=== PATIENT | female | born 1955 | race Caucasian/White ===

== ENCOUNTER → 2020-09-03 | Outpatient (CLI) | payer OTHER ==
--- NOTE | 2020-09-03 11:13 | REP ---
INDICATION: N95.0 PMB. COMPARISON: Comparison pelvic sonography October 04, 2013.. TECHNIQUE: Transabdominal and transvaginal scanning were performed. FINDINGS: Uterine dimensions are normal at 8.3 x 4.2 x 4.6 cm. Endometrial echo is 1.4 cm thick and centrally placed. No free fluid is seen in the cul-de-sac. Visualized bladder arana are smooth. Endometrium is abnormally thick. Multiple nabothian cysts are seen. The right ovary has dimensions of 1.2 x 0.7 x 1.4 cm. The left ovary dimensions are normal as well at 1.4 x 1.3 x 0.8 cm. IMPRESSION: 14 mm thickened endometrium. Rule out hyperplasia versus neoplasia. Otherwise negative.. <Electronically signed by Mike Granger > 09/03/20 [id number]
== END ==
LOC: M WHC 10:22
PROVIDERS: ATTEND Obstetrics & Gynecology
DX: N95.0 Postmenopausal bleeding (principal)

== ENCOUNTER → 2020-10-09 | Outpatient (CLI) | payer OTHER ==
--- NOTE | 2020-10-09 11:11 | REPPI ---
INDICATION: BILATERAL KNEE PAIN COMPARISON: None. TECHNIQUE: Five views bilateral knees. FINDINGS: There is no evidence of acute fracture, dislocation, or intrinsic bone disease.On the left there is moderate medial joint space narrowing with subchondral sclerosis. There is moderate spurring of the lateral femoral condyle and medial tibial plateau. There is mild spurring of the tibial spines. There is mild spurring of the superior and inferior poles of the patella. There is mild narrowing of the lateral patellofemoral joint with subchondral sclerosis. There is a mild to moderate suprapatellar effusion. On the right there is moderate medial joint space narrowing with subchondral sclerosis. There is moderate spurring of the medial femoral condyle and tibial plateau. There is mild spurring of the tibial spines. There is mild superior patellar spurring. There is mild narrowing of the lateral patellofemoral joint with subchondral sclerosis. There is a small suprapatellar effusion. IMPRESSION: No fracture or dislocation. Bilateral degenerative changes as discussed above, most significantly in the medial joint compartments. Bilateral suprapatellar effusions, left greater than right. <Electronically signed by Freddie Shore > 10/09/20 0137
== END ==
LOC: M PLAIMG 09:26
DX: M25.562 Pain in left knee (principal); M25.561 Pain in right knee; M17.0 Bilateral primary osteoarthritis of knee; M25.461 Effusion, right knee; M25.462 Effusion, left knee

== ENCOUNTER → 2022-05-03 | Outpatient (CLI) | payer MEDICARE, OTHER, SELFPAY ==
[~2022-05-03] MED LIST: HYDR12.55 PO; METO1TAB32 PO
== END ==
LOC: M WHC 14:12
PROVIDERS: ATTEND Nurse Practitioner Family
DX: Z12.31 Encounter for screening mammogram for malignant neoplasm of breast (principal); Z78.0 Asymptomatic menopausal state; N63.20 Unspecified lump in the left breast, unspecified quadrant; N63.10 Unspecified lump in the right breast, unspecified quadrant; M85.89 Other specified disorders of bone density and structure, multiple sites

== ENCOUNTER → 2022-06-29 | Outpatient (CLI) | payer MEDICARE, OTHER ==
[~2022-06-29] MED LIST changes: +ATOR1TAB21 PO; +VITMTA PO
== END ==
LOC: M LABSMTC 09:05
PROVIDERS: ATTEND Anesthesiology
DX: Z01.812 Encounter for preprocedural laboratory examination (principal); Z20.822 Contact with and (suspected) exposure to COVID-19

== ENCOUNTER 2022-07-04 07:56 | Day surgery (SDC) | payer MEDICARE, OTHER ==
[~2022-07-04] VITALS: Ht 167.6 cm; Wt 103.0 kg
[~2022-07-04 07:56] MED LIST changes: +LIDOCAINE 2% 100MG/5ML SDV (FOR ANES.) As Ordered ONE; +NS 1,000 ML IV ONE; +propofoL 200 MG/20 ML VIAL As Ordered ONE
[2022-07-04 10:07] VITALS: BP 121/72
== END 2022-07-04 10:08 | disposition home or self-care (01) ==
LOC: M OPP 07:56
PROVIDERS: ATTEND Internal Medicine Gastroenterology
DX: Z80.0 Family history of malignant neoplasm of digestive organs (principal); D12.6 Benign neoplasm of colon, unspecified; K64.0 First degree hemorrhoids; K57.30 Diverticulosis of large intestine without perforation or abscess without bleeding; Z79.899 Other long term (current) drug therapy; Z88.2 Allergy status to sulfonamides; I25.2 Old myocardial infarction; I77.819 Aortic ectasia, unspecified site; I34.0 Nonrheumatic mitral (valve) insufficiency; M13.89 Other specified arthritis, multiple sites; L40.9 Psoriasis, unspecified; Z80.41 Family history of malignant neoplasm of ovary; Z87.891 Personal history of nicotine dependence

== ENCOUNTER → 2023-08-07 | Outpatient (CLI) | payer MEDICARE, OTHER ==
[~2023-08-07] MED LIST changes: -LIDOCAINE 2% 100MG/5ML SDV (FOR ANES.) As Ordered ONE; -NS 1,000 ML IV ONE; -propofoL 200 MG/20 ML VIAL As Ordered ONE
== END ==
LOC: M ADAMS 10:22
PROVIDERS: ATTEND Nurse Practitioner Family
DX: S46.912A Strain of unspecified muscle, fascia and tendon at shoulder and upper arm level, left arm, initial encounter (principal); X58.XXXA Exposure to other specified factors, initial encounter; Y92.9 Unspecified place or not applicable; Y93.9 Activity, unspecified; Y99.9 Unspecified external cause status

== ENCOUNTER → 2023-08-17 | Outpatient (CLI) | payer MEDICARE, OTHER | LOC: M WHC 11:31 | PROVIDERS: ATTEND Nurse Practitioner Family | DX: Z12.31 Encounter for screening mammogram for malignant neoplasm of breast (principal); R92.343 Mammographic extreme density, bilateral breasts; Z80.41 Family history of malignant neoplasm of ovary ==

== ENCOUNTER → 2023-10-04 | Outpatient (REF) | payer MEDICARE, OTHER ==
[2023-10-04 13:34] LABS: CPK CREATINE PHOSPHOKINASE 107 U/L (34-145)
[2023-10-04 13:37] LABS: BASO % 0.7 % (0.0-1.0); EOS # 0.1 10^3/uL (0.0-0.5); EOS % 2.2 % (0.0-3.0); HEMATOCRIT 43.8 % (36.0-47.0); HEMOGLOBIN 14.4 g/dl (12.0-15.5); LYMPH # 2.1 10^3/uL (1.5-5.0); LYMPH % 34.9 % (24.0-44.0); MEAN CORPUSCULAR HEMOGLOBIN 29.8 pg (27.0-33.0); MEAN CORPUSCULAR HGB CONC 32.9 g/dl (32.0-36.5); MEAN CORPUSCULAR VOLUME 90.5 fl (80.0-96.0); MONO # 0.5 10^3/uL (0.0-0.8); MONO % 8.5 % (2.0-8.0); NEUTROPHILS # 3.2 10^3/uL (1.5-8.5); NEUTROPHILS % 53.5 % (36.0-66.0); PLATELET COUNT, AUTOMATED 220 10^3/uL (150-450); RED BLOOD COUNT 4.84 10^6/uL (4.00-5.40); WHITE BLOOD COUNT 5.9 10^3/uL (4.0-10.0)
[2023-10-04 13:49] LABS: ALBUMIN 3.8 G/DL (3.2-5.2); ALKALINE PHOSPHATASE 92 U/L (46-116); ALT/SGPT 26 U/L (7.0-40); AST/SGOT 20 U/L (<34); BILIRUBIN,TOTAL 0.6 MG/DL (0.3-1.2); BLOOD UREA NITROGEN 16 MG/DL (9-23); CALCIUM LEVEL 9.5 MG/DL (8.3-10.6); CARBON DIOXIDE LEVEL 30 MMOL/L (20-31); CHLORIDE LEVEL 105 MMOL/L (98-107); CHOLESTEROL LEVEL 165 MG/DL (<200); CHOLESTEROL RISK RATIO 2.79 (<5); CREATININE FOR GFR 0.86 MG/DL (0.55-1.30); GLOMERULAR FILTRATION RATE > 60.0 (>45); GLUCOSE, FASTING 92 MG/DL (74-106); HDL CHOLESTEROL 59.1 MG/DL (>40); LDL CHOLESTEROL 91.5 MG/DL (<100); NON-HDL-C 105.9 MG/DL; POTASSIUM SERUM 4.3 MMOL/L (3.5-5.1); SODIUM LEVEL 141 MMOL/L (136-145); TOTAL PROTEIN 6.4 G/DL (5.7-8.2); TRIGLYCERIDES LEVEL 72 MG/DL (<150)
[2023-10-05 08:11] LABS: LDL DIRECT 93 mg/dL (0-99)
== END ==
LOC: M LABDRWAD 12:57
PROVIDERS: ATTEND Physician Assistant Medical
DX: I35.1 Nonrheumatic aortic (valve) insufficiency (principal); Z82.49 Family history of ischemic heart disease and other diseases of the circulatory system; I89.0 Lymphedema, not elsewhere classified; E78.2 Mixed hyperlipidemia; R06.02 Shortness of breath

== ENCOUNTER → 2023-11-28 | Outpatient (CLI) | payer MEDICARE, OTHER | LOC: M WHC 08:18 | PROVIDERS: ATTEND Nurse Practitioner Family | DX: N64.59 Other signs and symptoms in breast (principal); Z53.9 Procedure and treatment not carried out, unspecified reason ==

== ENCOUNTER → 2024-06-10 | Outpatient (REF) | payer MEDICARE, OTHER ==
[2024-06-10 13:09] LABS: BASO % 0.6 % (0.0-1.0); EOS # 0.2 10^3/uL (0.0-0.5); EOS % 2.6 % (0.0-3.0); HEMATOCRIT 43.3 % (36.0-47.0); HEMOGLOBIN 13.7 g/dl (12.0-15.5); LYMPH # 2.1 10^3/uL (1.5-5.0); LYMPH % 29.5 % (24.0-44.0); MEAN CORPUSCULAR HEMOGLOBIN 28.4 pg (27.0-33.0); MEAN CORPUSCULAR HGB CONC 31.6 g/dl (32.0-36.5); MEAN CORPUSCULAR VOLUME 89.6 fl (80.0-96.0); MONO # 0.5 10^3/uL (0.0-0.8); MONO % 7.5 % (2.0-8.0); NEUTROPHILS # 4.3 10^3/uL (1.5-8.5); NEUTROPHILS % 59.5 % (36.0-66.0); PLATELET COUNT, AUTOMATED 275 10^3/uL (150-450); RED BLOOD COUNT 4.83 10^6/uL (4.00-5.40); WHITE BLOOD COUNT 7.2 10^3/uL (4.0-10.0)
[2024-06-10 13:13] LABS: ALBUMIN 3.7 G/DL (3.2-5.2); ALKALINE PHOSPHATASE 76 U/L (35-104); ALT/SGPT 32 U/L (7.0-40); AST/SGOT 26 U/L (<34); BILIRUBIN,TOTAL 0.7 MG/DL (0.3-1.2); BLOOD UREA NITROGEN 18 MG/DL (9-23); CALCIUM LEVEL 9.4 MG/DL (8.3-10.6); CARBON DIOXIDE LEVEL 29 MMOL/L (20-31); CHLORIDE LEVEL 107 MMOL/L (98-107); CHOLESTEROL LEVEL 163 MG/DL (<200); CHOLESTEROL RISK RATIO 3.56 (<5); CREATININE FOR GFR 0.78 MG/DL (0.55-1.30); GLOMERULAR FILTRATION RATE > 60.0 (>45); GLUCOSE, FASTING 94 MG/DL (74-106); HDL CHOLESTEROL 45.7 MG/DL (>40); LDL CHOLESTEROL 96.1 MG/DL (<100); NON-HDL-C 117.3 MG/DL; POTASSIUM SERUM 4.4 MMOL/L (3.5-5.1); SODIUM LEVEL 143 MMOL/L (136-145); THYROID STIMULATING HORMONE 1.745 uIU/ML (0.55-4.78); TOTAL 25(OH) VITAMIN D 34.5 NG/ML (20.0-100.0); TOTAL PROTEIN 6.3 G/DL (5.7-8.2); TRIGLYCERIDES LEVEL 106 MG/DL (<150)
[2024-06-10 13:30] LABS: HEMOGLOBIN A1c 5.3 % (4.0-6.0)
== END ==
LOC: M LABDRWAD 12:26
PROVIDERS: ATTEND Nurse Practitioner Family
DX: E55.9 Vitamin D deficiency, unspecified (principal); E66.9 Obesity, unspecified; I35.1 Nonrheumatic aortic (valve) insufficiency; R73.9 Hyperglycemia, unspecified; R60.0 Localized edema; E78.2 Mixed hyperlipidemia; R06.02 Shortness of breath; R94.31 Abnormal electrocardiogram [ECG] [EKG]; I71.21 Aneurysm of the ascending aorta, without rupture; Z82.49 Family history of ischemic heart disease and other diseases of the circulatory system

== ENCOUNTER → 2024-06-10 | Outpatient (REF) | payer MEDICARE, OTHER ==
[2024-06-10 13:08] LABS: BASO % 0.5 % (0.0-1.0); EOS # 0.2 10^3/uL (0.0-0.5); EOS % 2.4 % (0.0-3.0); HEMATOCRIT 42.9 % (36.0-47.0); HEMOGLOBIN 13.8 g/dl (12.0-15.5); LYMPH # 2.2 10^3/uL (1.5-5.0); LYMPH % 29.4 % (24.0-44.0); MEAN CORPUSCULAR HEMOGLOBIN 28.8 pg (27.0-33.0); MEAN CORPUSCULAR HGB CONC 32.2 g/dl (32.0-36.5); MEAN CORPUSCULAR VOLUME 89.6 fl (80.0-96.0); MONO # 0.6 10^3/uL (0.0-0.8); MONO % 8.1 % (2.0-8.0); NEUTROPHILS # 4.4 10^3/uL (1.5-8.5); NEUTROPHILS % 59.3 % (36.0-66.0); PLATELET COUNT, AUTOMATED 271 10^3/uL (150-450); RED BLOOD COUNT 4.79 10^6/uL (4.00-5.40); WHITE BLOOD COUNT 7.5 10^3/uL (4.0-10.0)
[2024-06-10 13:11] LABS: ALBUMIN 3.7 G/DL (3.2-5.2); ALKALINE PHOSPHATASE 75 U/L (35-104); ALT/SGPT 33 U/L (7.0-40); AST/SGOT 26 U/L (<34); BILIRUBIN,TOTAL 0.7 MG/DL (0.3-1.2); BLOOD UREA NITROGEN 19 MG/DL (9-23); CALCIUM LEVEL 9.3 MG/DL (8.3-10.6); CARBON DIOXIDE LEVEL 28 MMOL/L (20-31); CHLORIDE LEVEL 107 MMOL/L (98-107); CHOLESTEROL LEVEL 163 MG/DL (<200); CREATININE FOR GFR 0.78 MG/DL (0.55-1.30); GLOMERULAR FILTRATION RATE > 60.0 (>45); GLUCOSE, FASTING 95 MG/DL (74-106); HDL CHOLESTEROL 46.5 MG/DL (>40); LDL CHOLESTEROL 95.1 MG/DL (<100); NON-HDL-C 116.5 MG/DL; POTASSIUM SERUM 4.4 MMOL/L (3.5-5.1); SODIUM LEVEL 144 MMOL/L (136-145); TOTAL PROTEIN 6.2 G/DL (5.7-8.2); TRIGLYCERIDES LEVEL 107 MG/DL (<150)
[2024-06-10 13:22] LABS: CPK CREATINE PHOSPHOKINASE 115 U/L (34-145)
[2024-06-11 10:28] LABS: LDL DIRECT 94 mg/dL (<100)
== END ==
LOC: M LABDRWAD 12:21
PROVIDERS: ATTEND Physician Assistant Medical
DX: I35.1 Nonrheumatic aortic (valve) insufficiency (principal); R60.0 Localized edema; E66.9 Obesity, unspecified; R06.02 Shortness of breath; R94.31 Abnormal electrocardiogram [ECG] [EKG]; Z82.49 Family history of ischemic heart disease and other diseases of the circulatory system; I71.21 Aneurysm of the ascending aorta, without rupture; E78.2 Mixed hyperlipidemia

== ENCOUNTER → 2024-12-24 | Outpatient (CLI) | payer MEDICARE, OTHER | LOC: M WHC 07:58 | PROVIDERS: ATTEND Nurse Practitioner Family | DX: Z12.31 Encounter for screening mammogram for malignant neoplasm of breast (principal); Z78.0 Asymptomatic menopausal state; M85.89 Other specified disorders of bone density and structure, multiple sites; R92.333 Mammographic heterogeneous density, bilateral breasts ==

== ENCOUNTER 2025-02-07 08:13 | Outpatient (RCR) | payer MEDICARE, OTHER | END 2025-02-09 23:59 | disposition home or self-care (01) | LOC: M PT 08:13 | PROVIDERS: ATTEND Nurse Practitioner Family | DX: I89.0 Lymphedema, not elsewhere classified (principal) ==

== ENCOUNTER 2025-03-07 12:00 | Outpatient (RCR) | payer MEDICARE, OTHER | END 2025-03-11 | LOC: M PT 12:00 | PROVIDERS: ATTEND Nurse Practitioner Family | DX: I89.0 Lymphedema, not elsewhere classified (principal) ==

== ENCOUNTER → 2025-06-09 | Outpatient (REF) | payer MEDICARE, OTHER ==
[2025-06-09 14:05] LABS: BASO # 0.0 10^3/uL (0.0-0.2); BASO % 0.6 % (0.0-1.0); EOS # 0.2 10^3/uL (0.0-0.5); EOS % 3.7 % (0.0-3.0); LYMPH # 1.8 10^3/uL (1.5-5.0); LYMPH % 34.0 % (24.0-44.0); MONO # 0.6 10^3/uL (0.0-0.8); MONO % 10.7 % (2.0-8.0); NEUTROPHILS # 2.6 10^3/uL (1.5-8.5); NEUTROPHILS % 50.8 % (36.0-66.0); PLATELET COUNT, AUTOMATED 228 10^3/uL (150-450)
[2025-06-09 14:10] LABS: ALT/SGPT 20.0 U/L (7.0-40); AST/SGOT 20.0 U/L (<34); CALCIUM LEVEL 8.7 MG/DL (8.3-10.6); CARBON DIOXIDE LEVEL 29.0 MMOL/L (20-31); CHLORIDE LEVEL 105.0 MMOL/L (98-107); CHOLESTEROL LEVEL 134.0 MG/DL (<200); CHOLESTEROL RISK RATIO 2.88 (<5); CREATININE FOR GFR 0.86 MG/DL (0.55-1.30); GLOMERULAR FILTRATION RATE 73.5 (>45); LDL CHOLESTEROL 70.9 MG/DL (<100); NON-HDL-C 87.5 MG/DL; POTASSIUM SERUM 4.2 MMOL/L (3.5-5.1); SODIUM LEVEL 143.0 MMOL/L (136-145); TRIGLYCERIDES LEVEL 83.0 MG/DL (<150)
[2025-06-09 14:16] LABS: CPK CREATINE PHOSPHOKINASE 97.0 U/L (34-145)
[2025-06-10 11:00] LABS: LDL DIRECT 74 mg/dL (<100)
== END ==
LOC: M LABDRWAD 13:14
PROVIDERS: ATTEND Internal Medicine Cardiovascular Disease
DX: I35.1 Nonrheumatic aortic (valve) insufficiency (principal); Z82.49 Family history of ischemic heart disease and other diseases of the circulatory system; I71.21 Aneurysm of the ascending aorta, without rupture; E78.2 Mixed hyperlipidemia; E66.9 Obesity, unspecified; R42 Dizziness and giddiness; R60.0 Localized edema; R94.31 Abnormal electrocardiogram [ECG] [EKG]; R06.02 Shortness of breath